=== PATIENT | male | born 1985 | race Caucasian/White ===

== ENCOUNTER 2020-01-08 09:21 | Emergency (ER) | payer OTHER ==
[~2020-01-08] VITALS: Ht 175.3 cm; Wt 97.4 kg
[2020-01-08 09:22] VITALS: BP 142/73
[2020-01-08] MEDS ORDERED: IBUP-1022 PO (09:34)
[2020-01-08] MEDS ORDERED: INDOMETHACIN 25 MG CAP PO ONE (10:00)
[2020-01-08] MEDS ORDERED: INDO50CA91 PO (10:15)
== END 2020-01-08 10:37 | disposition home or self-care (01) ==
LOC: M ED 09:21
DX: M65.871 Other synovitis and tenosynovitis, right ankle and foot (principal); M77.51 Other enthesopathy of right foot and ankle; F17.200 Nicotine dependence, unspecified, uncomplicated